=== PATIENT | female | born 2000 | race Two or more races ===

== ENCOUNTER 2022-12-06 02:31 | Emergency (ER) | payer SELFPAY ==
[2022-12-06 02:34] VITALS: BP 128/81; PULSE 70; RESP 16; TEMP 36.8; O2SAT 98; BMI 30.8
--- NOTE | 2022-12-06 03:02 | ED_ITS ---
HPI - Female Genitourinary General Chief complaint: Urogenital-Female Stated complaint: VAGINAL BLEEDING Time Seen by Provider: 12/06/22 02:51 Source: patient History of Present Illness HPI Narrative: This 22-year-old female presents for evaluation of heavy vaginal bleeding. This started over a month ago after the patient had a chemical . She states that she initially had bleeding and passed the product of conception several days after today she got the pill. She started having some vaginal bleeding after that and has had intermittent heavy vaginal bleeding since that time. She states at times she feels lightheaded. She has not passed out. She has intermittent lower abdominal pain. She was seen at [facility] and had a pelvic exam done. At that time they did not see excessive bleeding from her pelvis. She denies the possibility of as she has not had intercourse with a man since having the miscarriage. She has not had any fever, foul- smelling discharge or severe lower abdominal pain. She came to the emergency department this morning because she has been going through a tampon every 30 minutes. Does not have an ROAD PATCHER locally because she recently relocated to [place] from [place]. Related Data Home Medications Medication Instructions Recorded Confirmed No Known Home Medications 12/06/22 12/06/22 Allergies Allergy/AdvReac Type Severity Reaction Status Date / Time iodine Allergy Unknown Verified 12/06/22 02:38 Review of Systems ROS Status of ROS 10 or more systems reviewed and unremarkable except as noted in history and below [facility] Social History Smoking status: Current every day smoker Exam Narrative Exam Narrative: Nurses note and vital signs reviewed and patient is not hypoxic. General: The patient appears well and in no apparent distress. Patient is resting comfortably on cart. Skin: Warm, dry, no pallor noted. There is no rash noted. Head: Normocephalic, atraumatic Eye: Normal conjunctiva, no drainage, EOMI. PERRL Ears, Nose, Mouth, and Throat: oral mucosa is moist. Nares patent. Cardiovascular: Regular Rate and Rhythm Respiratory: Patient is in no distress, no accessory muscle use, lungs are clear to auscultation, no wheezing, rales or rhonchi Back: non-tender, no CVA tenderness bilaterally to percussion. GI: Normal bowel sounds, no tenderness to palpation, no masses appreciated. No rebound, guarding, or rigidity noted. Musculoskeletal: The patient has no evidence of calf tenderness, no pitting edema, symmetrical pulses noted bilaterally Neurological: A&O x4, normal speech Psychiatric: Cooperative Constitutional Vital Signs, click to edit/add: Last Vital Signs Temp 98.3 F 12/06/22 02:34 Pulse 70 12/06/22 02:34 Resp 16 12/06/22 02:34 BP 128/81 12/06/22 02:34 Pulse Ox 98 12/06/22 02:34 O2 Del Method Room Air 12/06/22 02:34 Course Vital Signs Vital signs: Vital Signs Temperature 98.3 F 12/06/22 02:34 Pulse Rate 70 12/06/22 02:34 Respiratory Rate 16 12/06/22 02:34 Blood Pressure 128/81 12/06/22 02:34 Pulse Oximetry 98 12/06/22 02:34 Oxygen Delivery Method Room Air 12/06/22 02:34 Temperature 98.3 F 12/06/22 02:34 Pulse Rate 70 12/06/22 02:34 Respiratory Rate 16 12/06/22 02:34 Blood Pressure 128/81 12/06/22 02:34 Pulse Oximetry 98 12/06/22 02:34 Oxygen Delivery Method Room Air 12/06/22 02:34 MDM - Female Genitourinary MDM Narrative Medical decision making narrative: This 22-year-old female who has had several miscarriages and most recently a chemical after being approximately 10 weeks presents for evaluation of irregular and heavy vaginal bleeding. She complained of some dizziness but did not want an IV placed. She did take the pill in October and passed products of conception. He had some moderate to heavy bleeding after that which has waxed and waned but is again bleeding heavily. She came to the emergency department after bleeding through a tampon in 30 minutes. She is hemodynamically stable in the emergency department. Her conjunctiva are pink. Her abdomen is soft. She did recently have a pelvic exam at [facility] in [place] is told that one of the numbers was 8 and the provider wished that it had been 4... possibly the beta quant??. She did have a pelvic exam at that visit and was told that there was no active bleeding. No medications were prescribed to her and she does not have an Ob-Finish Painter. She declined an IV but routine labs were drawn by the lab. She has a normal white count. She has a normal hemoglobin at 11.6. She does not require any blood transfusions at this time. Her electrolytes are normal with the exception of a potassium of 3.3. She states that she will eat extra bananas and I also instructed her to drink orange juice. Her qualitative hCG is negative today indicating she does not have any products of conception. The results of the labs were discussed with her and she is comfortable being discharged home with referral to outpatient OB-Finish Painter. Lab Data Labs: Lab Results 12/06/22 Range/Units 03:15 WBC 7.7 (4.0-11.0) 10^3/uL RBC 4.12 L (4.20-5.40) 10^6/uL Hgb 11.6 L (12.0-16.0) g/dL Hct 37.4 (36.0-48.0) % MCV 90.8 (81.0-99.0) fL MCH 28.2 (26.7-34.0) pg MCHC 31.0 (29.9-35.2) g/dL RDW 14.1 (11.0-15.0) % Plt Count 307 (150-450) 10^3/uL MPV 10.2 (9.5-13.5) fL Neut % (Auto) 52.2 (43.0-75.0) % Lymph % (Auto) 34.6 (20.5-60.0) % [place] % (Auto) 10.2 (1.7-12.0) % Eos % (Auto) 2.0 (0.9-7.0) % Baso % (Auto) 0.7 (0.2-2.0) % Neut # (Auto) 4.0 (1.4-6.5) 10^3/uL Lymph # (Auto) 2.7 (1.2-3.8) 10^3/uL [place] # (Auto) 0.8 (0.3-0.8) 10^3/uL Eos # (Auto) 0.2 (0.0-0.7) 10^3/uL Baso # (Auto) 0.1 (0.0-0.1) 10^3/uL Abs Immat Gran (auto) 0.02 (0.00-0.03) 10^3/uL Imm/Tot Granulo (auto) 0.3 (0.0-0.5) % Sodium 141 (136-145) mmol/L Potassium 3.3 L (3.5-5.1) mmol/L Chloride 106 (98-107) mmol/L Carbon Dioxide 24.6 (21.0-32.0) mmol/L Anion Gap 13.7 BUN 7.0 (7.0-18.0) mg/dL Creatinine 0.62 (0.55-1.02) mg/dL Est GFR ( Amer) >60 (>=60) Est GFR (Non-Af Amer) >60 (>=60) BUN/Creatinine Ratio 11.3 Glucose 90 (74-106) mg/dL Calcium 8.5 (8.5-10.1) mg/dL Total Bilirubin 0.5 (0.2-1.0) mg/dL AST 11 L (15-37) U/L ALT 20 (14-59) U/L Alkaline Phosphatase 86 (46-116) U/L Total Protein 6.7 (6.4-8.2) g/dL Albumin 3.8 (3.4-5.0) g/dL Globulin 2.9 g/dL Albumin/Globulin Ratio 1.3 Serum HCG, Qual Negative (NEGATIVE) Discharge Plan Discharge Chief Complaint: Urogenital-Female Clinical Impression: Menometrorrhagia Patient Disposition: Home, Self-Care Time of Disposition Decision: 03:42 Condition: Good Prescriptions / Home Meds: No Action No Known Home Medications Instructions: Abnormal (Dysfunctional) Uterine Bleeding (ED) Additional Instructions: Follow-up with Dr. Powers as soon as he can make an appointment. Stand Alone Forms: Portal Instructions Referrals: Physician,Non-Staff, MD [Primary Care Provider] - 1 week
[2022-12-06 03:21] LABS: Basophils Absolute Auto 0.1 10^3/uL (0.0-0.1); Basophils Percent Auto 0.7 % (0.2-2.0); Eosinophils Absolute Auto 0.2 10^3/uL (0.0-0.7); Hematocrit 37.4 % (36.0-48.0); Hemoglobin 11.6 g/dL (12.0-16.0); Immature Granulocytes Abs Auto 0.02 10^3/uL (0.00-0.03); Immature Granulocytes Pct Auto 0.3 % (0.0-0.5); Lymphocytes Absolute Auto 2.7 10^3/uL (1.2-3.8); Lymphocytes Percent Auto 34.6 % (20.5-60.0); Mean Corpuscular Hemoglobin 28.2 pg (26.7-34.0); Mean Corpuscular Volume 90.8 fL (81.0-99.0); Mean Platelet Volume 10.2 fL (9.5-13.5); Monocytes Absolute Auto 0.8 10^3/uL (0.3-0.8); Monocytes Percent Auto 10.2 % (1.7-12.0); Neutrophils Percent Auto 52.2 % (43.0-75.0); Platelet Count 307 10^3/uL (150-450); Red Blood Count 4.12 10^6/uL (4.20-5.40); Red Cell Distribution Width 14.1 % (11.0-15.0); White Blood Count 7.7 10^3/uL (4.0-11.0)
[2022-12-06 03:30] LABS: HCG Qualitative NEGATIVE (NEGATIVE)
[2022-12-06 03:36] LABS: Alanine Aminotransferase 20 U/L (14-59); Albumin Globulin Ratio 1.3; Albumin Level 3.8 g/dL (3.4-5.0); Alkaline Phosphatase 86 U/L (46-116); Anion Gap 13.7; Aspartate Amino Transferase 11 U/L (15-37); BUN Creatinine Ratio 11.3; Bilirubin Total 0.5 mg/dL (0.2-1.0); Calcium 8.5 mg/dL (8.5-10.1); Carbon Dioxide 24.6 mmol/L (21.0-32.0); Chloride 106 mmol/L (98-107); Estimated GFR (African America >60 (>=60); Estimated GFR (Non-African Ame >60 (>=60); Globulin 2.9 g/dL; Glucose 90 mg/dL (74-106); Potassium 3.3 mmol/L (3.5-5.1); Sodium 141 mmol/L (136-145); Total Protein 6.7 g/dL (6.4-8.2)
== END 2022-12-06 03:56 | disposition home or self-care (01) ==
PROVIDERS: Emergency Provider Emergency Medicine
DX: N92.1 Excessive and frequent menstruation with irregular cycle (principal); F17.210 Nicotine dependence, cigarettes, uncomplicated
CPT/HCPCS: 36415; 80053; 84703; 85025; 86850; 86900; 86901; 99283